=== PATIENT | female | born 2000 | race Caucasian/White ===

== ENCOUNTER 2024-06-25 13:51 | Emergency (ER) | payer BC ==
[~2024-06-25] VITALS: Ht 165.1 cm; Wt 55.3 kg
[2024-06-25 13:59] VITALS: BP_SYST 131; PULSE 96; RESP 18; TEMP 98.3; O2SAT 97
[2024-06-25] MEDS ORDERED: LIDO1ADH22 TP (15:26)
[2024-06-25] MEDS ORDERED: DICL20GE TP (15:26)
[2024-06-25] MEDS ORDERED: IBUP-1969 PO (15:26)
[2024-06-25 16:01] VITALS: BP_SYST 131; PULSE 96; RESP 18; TEMP 98.3; O2SAT 97
[2024-06-25] MEDS: LIDOCAINE PATCH 5% 1 EA TP ONE (16:01)
== END 2024-06-25 16:02 | disposition home or self-care (01) ==
LOC: SED 13:51
DX: S76.812A Strain of other specified muscles, fascia and tendons at thigh level, left thigh, initial encounter (principal); X50.1XXA Overexertion from prolonged static or awkward postures, initial encounter; Y93.89 Activity, other specified; Y92.89 Other specified places as the place of occurrence of the external cause; Y99.8 Other external cause status
CPT/HCPCS: 93971; 99284